=== PATIENT | male | born 1955 | race Caucasian/White ===

== ENCOUNTER → 2023-08-24 | Outpatient (CLI) | payer MEDICARE, SELFPAY ==
--- NOTE | 2023-08-24 07:34 | ECHOCS_ITS ---
Version 2 Reason For Study: CARDIOMYOPATHY Procedure This was a 2D Doppler, Color Flow transthoracic echocardiogram. The study was technically difficult. Contrast injection was performed. Exam performed in department. Left Ventricle Normal LV size. Moderate concentric left ventricular hypertrophy. Moderately severe global left ventricular systolic dysfunction. Stage 1 diastolic dysfunction. The left ventricular ejection fraction is 35 %. There is moderate to severe global hypokinesis of the left ventricle. Right Ventricle Normal RV size. Normal systolic function. Atria Normal left atrium. Normal right atrium. Mitral Valve Normal mitral valve. Tricuspid Valve Normal tricuspid valve. Aortic Valve Trisinus/trileaflet aortic valve. Pulmonic Valve The pulmonic valve is not well visualized. Great Vessels Normal aortic root. The pulmonary artery is normal size. Inferior vena cava collapse with respiration. Pericardium/Pleural No pericardial effusion. Medication 22 gauge I.V. with prn adaptor inserted into right arm. Diluted definity 2.5ml given slow IV push to enhance endocardial definition. MMode/2D Measurements & Calculations LVIDd: 5.2 cm IVSd: 1.6 cm LVOT diam: 2.1 cm LVIDs: 4.3 cm LVPWd: 1.3 cm RVDd: 3.3 cm FS: 17.5 % LVOT area: 3.5 cm2 Ao root diam: 3.4 cm LAV(MOD-bp): 63.8 ml LVAd ap4: 46.9 cm2 LAV(MOD-bp) Indexed: 27.1 ml/m2 LVLd ap4: 9.3 cm LAV(MOD-sp2): 58.9 ml EDV(MOD-sp4): 190.5 ml LAV(MOD-sp4): 64.3 ml EDV(sp4-el): 201.0 ml LVAs ap4: 37.3 cm2 LVLs ap4: 9.1 cm ESV(MOD-sp4): 123.9 ml ESV(sp4-el): 130.4 ml EF(MOD-sp4): 34.9 % EF(sp4-el): 35.1 % LVAd ap2: 46.7 cm2 SV(MOD-sp4): 66.5 ml SV(MOD-sp2): 74.9 ml LVLd ap2: 9.3 cm EDV(MOD-sp2): 191.5 ml EDV(sp2-el): 199.5 ml LVAs ap2: 34.2 cm2 LVLs ap2: 8.5 cm ESV(MOD-sp2): 116.7 ml ESV(sp2-el): 116.7 ml EF(MOD-sp2): 39.1 % SV(sp4-el): 70.6 ml LA dimension(2D): 4.9 cm LA A4 area: 20.7 cm2 RA A4 area: 13.0 cm2 TAPSE: 2.4 cm Time Measurements MV dec time: 0.18 sec Doppler Measurements & Calculations MV E max ever: 36.5 cm/sec Lat Peak E' Ever: 4.5 cm/sec Med Peak E' Ever: 6.2 cm/sec MV A max ever: 86.1 cm/sec E/E' lat: 8.1 E/E' med: 5.9 MV E/A: 0.42 Ao V2 max: 90.2 cm/sec LV V1 max: 69.4 cm/sec MV dec slope: 204.6 cm/sec2 Ao max P.3 mmHg LV V1 max P.9 mmHg Ao V2 mean: 67.5 cm/sec LV V1 mean P.3 mmHg Ao mean P.0 mmHg LV V1 mean: 54.0 cm/sec Ao V2 VTI: 18.5 cm LV V1 VTI: 13.7 cm AV (velocity ratio): 0.74 HAIDER(I,D): 2.6 cm2 HAIDER(V,D): 2.7 cm2 SV(LVOT): 48.2 ml PA V2 max: 86.2 cm/sec PI end-d ever: 130.9 cm/sec PA max PG (full): 1.6 mmHg ECHO/Echo Complete W/ Contrast Interpretation Summary Normal LV size. Moderate concentric left ventricular hypertrophy. Moderately severe global left ventricular systolic dysfunction. There is moderate to severe global hypokinesis of the left ventricle. Stage 1 diastolic dysfunction. The left ventricular ejection fraction is 35 %. Contrast injection was performed. Ordering Physician: Andres Benson Referring Physician: Andres Benson MD Performed By: Kina Hoffman, [facility]
== END | disposition home or self-care (01) ==
PROVIDERS: Referring Provider Internal Medicine Cardiovascular Disease; Visit Provider Internal Medicine Cardiovascular Disease
DX: I42.8 Other cardiomyopathies (principal)
CPT/HCPCS: 93306; Q9957; A4216; C8929

== ENCOUNTER → 2024-05-19 | Outpatient (CLI) | payer MEDICARE, SELFPAY ==
--- NOTE | 2024-05-19 07:53 | ECHOL_ITS ---
Reason For Study: NONISCH CMP Procedure This was a limited 2D transthoracic echocardiogram. The study was technically difficult. Exam performed in department. Left Ventricle Normal LV size. The left ventricular ejection fraction is 50 %. Stage 1 diastolic dysfunction. No regional wall motion abnormalities noted. Right Ventricle Normal RV size. Normal systolic function. Atria Normal left atrium. Normal right atrium. Mitral Valve Normal mitral valve. Tricuspid Valve Normal tricuspid valve. Aortic Valve Normal aortic valve. Pulmonic Valve The pulmonic valve is not well visualized. Great Vessels Normal aortic root. The pulmonary artery is normal size. Normal inferior vena cava. Pericardium/Pleural No pericardial effusion. Medication 22 gauge I.V. with prn adaptor inserted into right arm. Diluted definity 3ml given slow IV push to enhance endocardial definition. MMode/2D Measurements & Calculations LVIDd: 4.6 cm IVSd: 1.1 cm Ao root diam: 3.3 cm LVIDs: 3.7 cm LVPWd: 1.7 cm FS: 19.5 % LAV(MOD-bp): 40.5 ml LVAd ap4: 37.9 cm2 SV(MOD-sp4): 71.7 ml LAV(MOD-bp) Indexed: 17.3 ml/m2 LVLd ap4: 8.1 cm SI(MOD-sp4): 30.6 ml/m2 LAV(MOD-sp2): 32.7 ml EDV(MOD-sp4): 141.5 ml LAV(MOD-sp4): 46.5 ml EDV(sp4-el): 149.9 ml LVAs ap4: 24.6 cm2 LVLs ap4: 7.1 cm ESV(MOD-sp4): 69.9 ml ESV(sp4-el): 72.1 ml EF(MOD-sp4): 50.6 % EF(sp4-el): 51.9 % SV(sp4-el): 77.8 ml LA A4 area: 17.1 cm2 LA dimension(2D): 4.9 cm RA A4 area: 11.0 cm2 Time Measurements MV dec time: 0.16 sec Doppler Measurements & Calculations MV E max lynne: 63.2 cm/sec MV V2 max: 97.9 cm/sec MV dec slope: 401.9 cm/sec2 MV A max lynne: 72.8 cm/sec MV max P.8 mmHg MV E/A: 0.87 MV V2 mean: 63.8 cm/sec MV mean P.8 mmHg MV V2 VTI: 25.5 cm PA V2 max: 105.9 cm/sec PI end-d lynne: 137.7 cm/sec PA V2 mean: 61.1 cm/sec ECHO/Echo Limited w/Contrast Interpretation Summary Normal LV size. The left ventricular ejection fraction is 50 %. Stage 1 diastolic dysfunction. Contrast injection was performed. Compared to previous study, the left ventricu lar systolic function has improved.. Ordering Physician: Batsheva Eaton Referring Physician: Batsheva Eaton Performed By: Prabha Escobar RCS
== END | disposition home or self-care (01) ==
LOC: CVS 07:53
PROVIDERS: PCP Specialist; Referring Provider Nurse Practitioner Gerontology; Visit Provider Nurse Practitioner Gerontology
DX: I42.8 Other cardiomyopathies (principal)
CPT/HCPCS: 93308; Q9957; A4216; C8924

== ENCOUNTER → 2024-06-21 | Outpatient (CLI) | payer MEDICARE, SELFPAY ==
[2024-06-21 16:01] LABS: BNP,B-Type NATRIURETIC PEPTIDE 25.1 pg/mL (0-100)
== END | disposition home or self-care (01) ==
LOC: LAB 15:12
PROVIDERS: PCP Specialist; Referring Provider Internal Medicine Cardiovascular Disease; Visit Provider Internal Medicine Cardiovascular Disease
DX: I42.8 Other cardiomyopathies (principal); R06.09 Other forms of dyspnea
CPT/HCPCS: 36415; 83880

== ENCOUNTER → 2025-02-28 | Outpatient (CLI) | payer MEDICARE, SELFPAY ==
--- NOTE | 2025-02-28 16:09 | MRI_ITS ---
PROCEDURE: SPINE CERVICAL (ROUTINE) 02/28/2025 REASON FOR EXAM: CERVICAL MYELOPATHY TECHNIQUE: Procedure Code: MRISPC Modality: MR Procedure: SPINE CERVICAL (ROUTINE) Multiplanar and multisequence images were obtained without IV contrast administration. COMPARISON: None available. FINDINGS: The visualized posterior fossa contents appear within normal limits. Straightening of the cervical spine. The atlantooccipital and atlantoaxial joints appear normally aligned. The cervical vertebral bodies are normal in height. The cervical vertebral bodies are normal in alignment. The cervical bone marrow signal is within normal limits. There is no evidence of cervical spinal cord signal abnormality. C2-C3: No significant spinal canal stenosis or neural foraminal narrowing. C3-C4: No disc bulge or herniation. No significant spinal canal stenosis. Bilateral facet arthrosis and uncovertebral spurring contribute to moderate bilateral neural foraminal narrowing. C4-C5: No disc bulge or herniation. No significant spinal canal stenosis. Bilateral facet arthrosis and uncovertebral spurring contribute to bilateral [id number] neural foraminal narrowing. C5-C6: Disc bulge, bilateral facet arthrosis, and uncovertebral spurring. No significant spinal canal stenosis. Moderate right and mild left neural foraminal narrowing. C6-C7: Disc bulge, bilateral facet arthrosis, and uncovertebral spurring. Mild spinal canal stenosis. Mild right and moderate left neural foraminal narrowing. C7-T1: No significant spinal canal stenosis or neural foraminal narrowing. MRI/Spine Cervical (Routine) IMPRESSION: Cervical spondylosis without high-grade spinal canal stenosis. Multiple levels of [id number] neural foraminal stenosis. Additional details as discussed above. Reading Location: [id number]
== END | disposition home or self-care (01) ==
PROVIDERS: PCP Specialist; Referring Provider Orthopaedic Surgery Orthopaedic Surgery of the Spine; Visit Provider Orthopaedic Surgery Orthopaedic Surgery of the Spine
DX: G95.9 Disease of spinal cord, unspecified (principal)
CPT/HCPCS: 72141